=== PATIENT | female | born 1995 | race Caucasian/White ===

== ENCOUNTER 2020-07-17 03:56 | Emergency (ER) | payer OTHER ==
--- NOTE | 2020-07-17 04:39 | EDM.PDOC ---
<Jennie Sofia - Last Filed: 07/17/20 05:05> ED HPI GENERAL MEDICAL PROBLEM - General Chief Complaint: Abdominal Pain Stated Complaint: ABD PAIN Time Seen by Provider: 07/17/20 04:39 Source of Information: Reports: Patient History Limitations: Reports: No Limitations - History of Present Illness INITIAL COMMENTS - FREE TEXT/NARRATIVE: pt arrived with a history of marked cramping through out the nite. She had the urge to have a stool and did sit on the stool for a long time. She then pass some stool mixed with about 1/4 cup of blood. fairly bright colored. She had 2 stools like this. Onset: Today, Sudden Duration: Hour(s): Location: Reports: Abdomen Lower Abdomen Pain Score (Numeric/FACES): 6 - Related Data Allergies Allergy/AdvReac Type Severity Reaction Status Date / Time No Known Allergies Allergy Verified 07/17/20 04:19 Home Meds: Home Meds Ciprofloxacin [Ciprofloxacin HCl] 500 mg PO Q12H #20 tab 07/17/20 [Rx] metroNIDAZOLE [Metronidazole] 500 mg PO Q8H #30 tablet 07/17/20 [Rx] Past Medical History Neurological History: Reports: Migraines Psychiatric History: Reports: Anxiety Dermatologic History: Reports: Other (See Below) - Infectious Disease History Infectious Disease History: Reports: Chicken Pox - Past Surgical History Head Surgeries/Procedures: Reports: None Neurological Surgical History: Reports: None Dermatological Surgical History: Reports: None Social & Family History - Tobacco Use Smoking Status *Q: Never Smoker Second Hand Smoke Exposure: No - Caffeine Use Caffeine Use: Reports: Soda - Recreational Drug Use Recreational Drug Use: No ED ROS GENERAL - Review of Systems Review Of Systems: See Below Constitutional: Reports: No Symptoms HEENT: Reports: No Symptoms Respiratory: Reports: No Symptoms Cardiovascular: Reports: No Symptoms Endocrine: Reports: No Symptoms GI/Abdominal: Reports: Abdominal Pain, Other (pain is crampy in nature. ) : Reports: No Symptoms Musculoskeletal: Reports: No Symptoms Skin: Reports: No Symptoms Neurological: Reports: No Symptoms ED EXAM, GI/ABD - Physical Exam Exam: See Below Text/Narrative:: pt arrived with a history of crampy abdomanal pain. She had 2 episodes where she passed a sig amount of blood. She continues to have some cramping. Exam Limited By: No Limitations General Appearance: Alert, Anxious, Moderate Distress Ears: Normal TMs Nose: Normal Inspection Throat/Mouth: Normal Inspection Head: Atraumatic Neck: Normal Inspection Respiratory/Chest: No Respiratory Distress Cardiovascular: Regular Rate, Rhythm GI/Abdominal Exam: Other (pt does have sig guarding or tenderness present. ) (Female) Exam: Deferred Rectal (Female) Exam: Deferred Back Exam: Normal Inspection Extremities: Normal Inspection Neurological: Alert, Oriented, Normal Cognition Course - Re-Assessments/Exams Free Text/Narrative Re-Assessment/Exam: 07/17/20 05:10 pt has a wbc of 12,000. Her hg is good. Departure - Departure Disposition: Home, Self-Care 01 Clinical Impression: Colitis, Rectal bleeding - Discharge Information Prescriptions: Ciprofloxacin [Ciprofloxacin HCl] 500 mg PO Q12H #20 tab metroNIDAZOLE [Metronidazole] 500 mg PO Q8H #30 tablet Referrals: Mirella Parson PA [Primary Care Provider] - Forms: ED Department Discharge Additional Instructions: Take Ciprofloxacin every 12 hrs and metronidazole every 8 hrs until gone. Take acetaminophen 1000 mg every 6 hrs for pain relief. Eat a light diet and clear liquids, advance your diet as tolerated. Recheck with your provider the end of the week, return here if worse. Sepsis Event Note (ED) - Evaluation Sepsis Screening Result: No Definite Risk <Garrison Lamar - Last Filed: 07/17/20 12:17> Course - Vital Signs Text/Narrative:: Dr. Sofia called Dr. Serrano at about 0720h, will see in ER. Dr. Alfonso called @ 0925h Last Recorded V/S: Last Vital Signs Temp 36.1 C 07/17/20 04:22 Pulse 85 07/17/20 09:34 Resp 18 07/17/20 09:34 BP 159/89 H 07/17/20 09:34 Pulse Ox 97 07/17/20 09:34 - Orders/Labs/Meds Orders: Active Orders 24 hr Category Date Time Status Sodium Chloride 0.9% [Normal Saline] 1,000 ml Med 07/17/20 05:30 Active IV ASDIRECTED Medication Orders Sodium Chloride (Normal Saline) 1,000 mls @ 999 mls/hr IV ASDIRECTED HAYLEY Last Admin: 07/17/20 05:58 Dose: 999 mls/hr Documented by: HALLIAN Labs: Laboratory Tests 07/17/20 07/17/20 07/17/20 Range/Units 04:48 04:48 04:48 WBC 12.4 H (4.5-11.0) K/uL RBC 5.17 (3.30-5.50) M/uL Hgb 14.8 (12.0-15.0) g/dL Hct 44.5 (36.0-48.0) % MCV 86 (80-98) fL MCH 29 (27-31) pg MCHC 33 (32-36) % Plt Count 306 (150-400) K/uL Neut % (Auto) 86 H (36-66) % Lymph % (Auto) 10 L (24-44) % [place] % (Auto) 4 (2-6) % Eos % (Auto) 0 L (2-4) % Baso % (Auto) 0 (0-1) % Sodium 136 L (140-148) mmol/L Potassium 3.7 (3.6-5.2) mmol/L Chloride 101 (100-108) mmol/L Carbon Dioxide 23 (21-32) mmol/L Anion Gap 15.7 H (5.0-14.0) mmol/L BUN 6 L (7-18) mg/dL Creatinine 1.0 (0.6-1.0) mg/dL Est Cr Clr Drug Dosing 71.14 mL/min Estimated GFR (MDRD) > 60 (>60) Glucose 112 H (74-106) mg/dL Calcium 9.4 (8.5-10.1) mg/dL Total Bilirubin 0.3 (0.2-1.0) mg/dL AST 15 (15-37) U/L ALT 19 (12-78) U/L Alkaline Phosphatase 52 (46-116) U/L C-Reactive Protein 1.24 H (0.0-0.3) mg/dL Total Protein 8.4 H (6.4-8.2) g/dL Albumin 3.9 (3.4-5.0) g/dL Globulin 4.5 H (2.3-3.5) g/dL Albumin/Globulin Ratio 0.9 L (1.2-2.2) Urine Color (YELLOW) Urine Appearance (CLEAR) Urine pH (5.0-8.0) Ur Specific [place] (1.008-1.030) Urine Protein (NEGATIVE) mg/dL Urine Glucose (UA) (NEGATIVE) mg/dL Urine Ketones (NEGATIVE) mg/dL Urine Occult Blood (NEGATIVE) Urine Nitrite (NEGATIVE) Urine Bilirubin (NEGATIVE) Urine Urobilinogen (0.2-1.0) EU/dL Ur Leukocyte Esterase (NEGATIVE) Urine RBC (0-5) Urine WBC (0-5) Ur Epithelial Cells Amorphous Sediment Urine Bacteria Urine Mucus Urine HCG, Qual 07/17/20 07/17/20 Range/Units 05:16 05:28 WBC (4.5-11.0) K/uL RBC (3.30-5.50) M/uL Hgb (12.0-15.0) g/dL Hct (36.0-48.0) % MCV (80-98) fL MCH (27-31) pg MCHC (32-36) % Plt Count (150-400) K/uL Neut % (Auto) (36-66) % Lymph % (Auto) (24-44) % [place] % (Auto) (2-6) % Eos % (Auto) (2-4) % Baso % (Auto) (0-1) % Sodium (140-148) mmol/L Potassium (3.6-5.2) mmol/L Chloride (100-108) mmol/L Carbon Dioxide (21-32) mmol/L Anion Gap (5.0-14.0) mmol/L BUN (7-18) mg/dL Creatinine (0.6-1.0) mg/dL Est Cr Clr Drug Dosing mL/min Estimated GFR (MDRD) (>60) Glucose (74-106) mg/dL Calcium (8.5-10.1) mg/dL Total Bilirubin (0.2-1.0) mg/dL AST (15-37) U/L ALT (12-78) U/L Alkaline Phosphatase (46-116) U/L C-Reactive Protein (0.0-0.3) mg/dL Total Protein (6.4-8.2) g/dL Albumin (3.4-5.0) g/dL Globulin (2.3-3.5) g/dL Albumin/Globulin Ratio (1.2-2.2) Urine Color Yellow (YELLOW) Urine Appearance Clear (CLEAR) Urine pH 6.0 (5.0-8.0) Ur Specific [place] 1.025 (1.008-1.030) Urine Protein Negative (NEGATIVE) mg/dL Urine Glucose (UA) Negative (NEGATIVE) mg/dL Urine Ketones Negative (NEGATIVE) mg/dL Urine Occult Blood Small H (NEGATIVE) Urine Nitrite Negative (NEGATIVE) Urine Bilirubin Negative (NEGATIVE) Urine Urobilinogen 0.2 (0.2-1.0) EU/dL Ur Leukocyte Esterase Negative (NEGATIVE) Urine RBC 0-5 (0-5) Urine WBC 0-5 (0-5) Ur Epithelial Cells Moderate Amorphous Sediment Not seen Urine Bacteria Few Urine Mucus Not seen Urine HCG, Qual Negative Meds: Medications Generic Name Dose Route Start Last Admin Trade Name Freq PRN Reason Stop Dose Admin Sodium Chloride 1,000 mls @ 999 mls/hr 07/17/20 05:30 07/17/20 05:58 Normal Saline IV 999 mls/hr ASDIRECTED HAYLEY Administration Discontinued Medications Generic Name Dose Route Start Last Admin Trade Name Freq PRN Reason Stop Dose Admin Diphenhydramine HCl 50 mg 07/17/20 09:54 07/17/20 09:59 Benadryl IVPUSH 07/17/20 09:55 50 mg ONETIME ONE Administration Diphenhydramine HCl Confirm 07/17/20 09:55 07/17/20 10:03 Benadryl Administered 07/17/20 09:56 Not Given Dose 50 mg .ROUTE .STK-MED ONE Sodium Chloride 74 mls @ 3.4 mls/sec 07/17/20 05:35 07/17/20 05:46 Normal Saline IV 07/17/20 05:36 3.4 mls/sec ASDIRECTED STA Administration Metronidazole 500 mg/ Premix 100 mls @ 100 mls/hr 07/17/20 09:24 07/17/20 0 9:30 IV 07/17/20 10:23 100 mls/hr ONETIME ONE Administration Ciprofloxacin/Dextrose 400 mg/ 200 mls @ 200 mls/hr 07/17/20 09:25 07/17/20 09:30 Premix IV 07/17/20 10:24 200 mls/hr ONETIME ONE Administration Iopamidol 100 ml 07/17/20 05:35 07/17/20 05:46 Isovue-300 (61%) IV 07/17/20 05:36 100 ml . DIRECTED STA Administration - Radiology Interpretation Free Text/Narrative:: CT abd/pelvis-IMPRESSION: Acute colitis of the descending colon is likely infectious in nature. Remainder the exam is unremarkable. Dictated by Constantino Garcia MD @ 07/17/2020 7:33:10 AM Please note that all CT scans at this facility use dose modulation, iterative reconstruction, and/or weight-based dosing when appropriate to reduce radiation dose to as low as reasonably achievable. Dictated by: Constantino Garcia MD @ 07/17/2020 07:33:12 Departure - Departure Time of Disposition: 12:15 Condition: Fair - Discharge Information *PRESCRIPTION DRUG MONITORING PROGRAM REVIEWED*: Not Applicable *COPY OF PRESCRIPTION DRUG MONITORING REPORT IN PATIENT DAVON: Not Applicable Sepsis Event Note (ED) - Focused Exam Vital Signs: Vital Signs Temp Pulse Resp BP Pulse Ox 07/17/20 09:34 85 18 159/89 H 97 07/17/20 04:48 85 27 H 141/93 H 98 07/17/20 04:22 36.1 C 98 15 158/108 H 99 07/17/20 04:21 36.1 C 98 15 158/108 H 99
[2020-07-17] MEDS ORDERED: Sodium Chloride 0.9% 1,000 ML IV SCH (05:30)
[2020-07-17] MEDS ORDERED: Iopamidol 612 MG/ML 100 ML Bottle IV STA (05:35)
--- NOTE | 2020-07-17 07:35 | CRLCT ---
INDICATION: Lower abdominal pain. TECHNIQUE: CT abdomen and pelvis acquired with 100 cc Isovue-300 IV contrast. COMPARISON: None. FINDINGS: Lower chest: Unremarkable. Liver: Unremarkable. Normal in size and attenuation. No masses. Gallbladder and bile ducts: Unremarkable. No stones or inflammation. No biliary dilatation. Pancreas: Unremarkable. No mass or inflammation. Spleen: Unremarkable. Normal in size. No masses. Adrenal glands: Unremarkable. No nodules. Kidneys: Unremarkable. No masses, stones, or hydronephrosis. GI tract: Mild wall edema and inflammation of the descending colon. Remainder of the GI tract is normal in caliber and appearance. Normal appendix. Vasculature: Unremarkable. Mesenteric arteries are patent. Lymph nodes: No lymphadenopathy. Omentum/Peritoneum/Abdominal Wall: Unremarkable. No sign of mass or infiltration. No free air or significant free fluid. Pelvis: Unremarkable. Bones: Unremarkable for age. IMPRESSION: Acute colitis of the descending colon is likely infectious in nature. Remainder the exam is unremarkable. Dictated by Constantino Garcia MD @ 07/17/2020 7:33:10 AM Please note that all CT scans at this facility use dose modulation, iterative reconstruction, and/or weight-based dosing when appropriate to reduce radiation dose to as low as reasonably achievable. Dictated by: Constantino Garcia MD @ 07/17/2020 07:33:12 (Electronically Signed)
[2020-07-17] MEDS ORDERED: metroNIDAZOLE/Normal Saline 500 MG in Premix Bag 1 BAG IV ONE (09:24)
[2020-07-17] MEDS ORDERED: Ciprofloxacin in D5W 400 MG in Premix Bag 1 BAG IV ONE ×2 (09:25)
[2020-07-17] MEDS ORDERED: diphenhydrAMINE 50 MG/ML SDV IVPUSH ONE (09:54)
[2020-07-17] MEDS ORDERED: diphenhydrAMINE 50 MG/ML SDV ONE (09:55)
--- NOTE | 2020-07-17 20:05 | CONS ---
DATE OF SERVICE: 07/17/2020 REFERRING PHYSICIAN: CONSULTING PHYSICIAN: Brian Serrano MD REASON FOR CONSULTATION: Abdominal pain. HISTORY OF PRESENT ILLNESS: This is a pleasant 25-year-old female who has had abdominal pain for less than 24 hours. The patient also developed blood in the stool, which is a new problem for her. Her pain is described as a 3 to 4/10 up to 6/10 and is mostly intermittent. No previous history of colonoscopy. PAST MEDICAL HISTORY: Migraines and anxiety. SOCIAL HISTORY: She is not a smoker. FAMILY HISTORY: Noncontributory. REVIEW OF SYSTEMS: GENERAL: The patient is resting fairly, appropriate for condition. HEENT: No symptoms. RESPIRATORY: No recent shortness of breath issues. CARDIOVASCULAR: No congenital abnormalities. GASTROINTESTINAL: As above. GENITOURINARY: No dysuria. MUSCULOSKELETAL: No symptoms. SKIN: No issues. PSYCH: No evidence of anxiety. PHYSICAL EXAMINATION: VITAL SIGNS: Stable. HEENT: Pupils are equal. NECK: Supple. ABDOMEN: No rebound. No guarding. No significant pain with palpation. EXTREMITIES: Full major range of motion. NEUROLOGICAL: Oriented x3. PSYCH: No gross depression. LABORATORY DATA: Results show elevated white count of 12,000. Creatinine in 1.0. IMAGING DATA: I did review a CT scan which shows infectious colitis. ASSESSMENT: The patient did not require any surgical intervention at this time. I did ask the emergency room physician to discuss with hospitalist for possible admission due to infectious colitis. Surgical Services will sign off. Brian Serrano MD /[id number]
== END 2020-07-17 12:44 | disposition home or self-care (01) ==
LOC: JP.ED 03:56
DX: K52.9 Noninfective gastroenteritis and colitis, unspecified (principal)
CPT/HCPCS: 36415; 74177; 80053; 81001; 81025; 85025; 86140; 96361; 96365; 96368; 96375; 99284; J0744; J1200; J3490; J7030; J7050; Q9967; 99283